=== PATIENT | female | born 1965 | race Caucasian/White ===

== ENCOUNTER 2016-05-06 23:10 | Emergency (ER) | payer OTHER ==
[~2016-05-06] VITALS: Ht 167.6 cm; Wt 89.8 kg
[2016-05-07] MEDS ORDERED: BUPROPION XL150 MG PO (00:13)
[2016-05-07] MEDS ORDERED: HYDROCODON-ACE1 EAC7 PO (00:13)
[2016-05-07] MEDS ORDERED: METOPROLOL SUCC25 MG PO (00:13)
[2016-05-07] MEDS ORDERED: DEXILANT60 MG PO (00:13)
[2016-05-07 00:22] LABS: CHLORIDE 104 mEq/L (99-109); POTASSIUM 3.9 mEq/L (3.7-5.4); SODIUM 139 mEq/L (136-147)
[2016-05-07 00:24] LABS: GLUCOSE 107 mg/dL (70-99)
[2016-05-07 00:25] LABS: ANION GAP 8 MEQ/L (2-14)
[2016-05-07 00:28] LABS: GFR ESTIMATE (CALCULATED) 56 mL/min/
[2016-05-07 00:29] LABS: UREA NITROGEN (BUN) 12 mg/dL (9-23)
[2016-05-07 00:33] LABS: HEMATOCRIT 40.3 % (36.0-46.0); MCH 31.2 PG (29.0-34.0); MCHC 35.7 G/DL (30.0-36.0); MCV 87.2 FL (83-99); PLATELET COUNT 289 K/uL (156-360); RBC DIS.WIDTH-CV 12.7 % (11.8-14.6); RED BLOOD COUNT 4.62 M/uL (3.80-5.20); WHITE BLOOD COUNT 7.4 K/uL (4.1-10.2)
[2016-05-07 00:34] LABS: EOSINOPHIL (%) 0.8 % (0-5); EOSINOPHIL COUNT 0.1 K/uL (0-0.3); IMMATURE GRANULOCYTE (%) 0.1 % (0.0-0.7); LYMPHOCYTE COUNT 1.2 K/uL (1.0-2.8); MEAN PLAT.VOLUME 9.2 uM^3 (9.5-12.4); MONOCYTE (%) 4.2 % (3-12); MONOCYTE COUNT 0.3 K/uL (0-0.8); NEUTROPHIL (%) 78.8 % (45-76); NEUTROPHIL COUNT 5.9 K/uL (1.8-6.4)
[2016-05-07 00:59] LABS: INTER. NORMALIZED RATIO 1.1; PROTHROMBIN TIME 10.9 (9.2-11.2); PTT 28.2 (25-32)
[2016-05-07 02:23] VITALS: BP 122/71
== END 2016-05-07 02:25 | disposition home or self-care (01) ==
LOC: EME 23:10
PROVIDERS: Personal Emergency Response Attendant
DX: R51 Headache (principal); M79.7 Fibromyalgia; I10 Essential (primary) hypertension; K21.9 Gastro-esophageal reflux disease without esophagitis
CPT/HCPCS: 70450; 80048; 85025; 85610; 85730; 99281; 99285; J0780; J1200; J1885; J7030